=== PATIENT | male | born 1955 | race African-American/Black ===

== ENCOUNTER 2020-12-09 08:00 | Inpatient (IN) | payer OTHER ==
[2020-12-02 12:13] VITALS: BMI 24.0
[2020-12-09] MEDS ORDERED: PROMETHAZINE HCL 25 MG/1 ML VIAL IVPUSH PRN (16:11)
[2020-12-09] MEDS ORDERED: ONDANSETRON 4 MG/2 ML VIAL IVPUSH PRN ×2 (16:11→21:06)
[2020-12-09] MEDS ORDERED: TRANEXAMIC ACID 1000 MG/10 ML VIAL ONE (20:09)
[2020-12-09] MEDS ORDERED: ACETAMINOPHEN INJECTION 100 ML IVPB ONE (20:57)
[2020-12-09] MEDS ORDERED: PROMETHAZINE HCL 25 MG/1 ML VIAL ONE (21:00)
[2020-12-09] MEDS ORDERED: HYDROmorphone HCL 0.5 MG/0.5 ML SYRINGE ONE (21:00)
[2020-12-09] MEDS ORDERED: ALBUTEROL SO4 HFA INHALER IH PRN ×2 (21:06→21:12)
[2020-12-09] MEDS ORDERED: MAGNESIUM HYDROX 2400MG/30ML ORAL SUSPENSION 30 ML CUP PO PRN (21:06)
[2020-12-09] MEDS ORDERED: FLUTICASONE PROP 0.05% 16 GM NASAL SPRAY NS PRN (21:06)
[2020-12-09] MEDS ORDERED: MAG HYDROX/AL HYDROX/SIMETH 30 ML UNIT-DOSE CUP PO PRN (21:06)
[2020-12-09] MEDS ORDERED: LACTATED RINGERS SOLUTION 1,000 ML IV SCH (21:15)
[2020-12-09] MEDS: HYDROmorphone HCl 2 MG/ML VIAL IVPUSH PRN ×2 (21:17→21:29)
[2020-12-09] MEDS: LABETALOL HCL 5 MG/1 ML (100MG/20 ML VIAL) IVPUSH PRN ×2 (21:22→22:40)
[2020-12-09] MEDS: hydrALAZINE HCL 20 MG/ML VIAL IVPUSH ONE ×2 (21:40→21:55)
[2020-12-09] MEDS ORDERED: HYDROmorphone HCl 2 MG/ML VIAL IVPUSH PRN (21:42)
[2020-12-09] MEDS ORDERED: HYDROmorphone HCl 2 MG/ML VIAL IVPB PRN (21:45)
[2020-12-09] MEDS: ACETAMINOPHEN 1000 MG/100 ML VIAL (NON FORMULARY) IVPB ONE (22:00)
[2020-12-09] MEDS ORDERED: ASPIRIN 325 MG TABLET PO SCH (22:00)
[2020-12-10] MEDS: SENNOSIDES/DOCUSATE COMBO (SENNA PLUS) TABLET (UD) PO SCH ×3 (00:09→21:54)
[2020-12-10] MEDS: CEFAZOLIN 2 GM/D5W 2 GM/50 ML ML IVPB SCH ×3 (01:19→13:00)
[2020-12-10] MEDS: ACETAMINOPHEN 325 MG TABLET (FP) PO PRN ×2 (06:49→21:55)
[2020-12-10] MEDS: oxyCODONE HCL 5 MG TABLET PO PRN ×3 (06:49→21:55)
[2020-12-10] MEDS ORDERED: HYDROmorphone HCL/PF 1 MG/ML VIAL IVPB PRN (07:56)
[2020-12-10 08:03] LABS: HEMATOCRIT 37.3 % (35.4-49); HEMOGLOBIN 11.9 GM/dl (11.7-16.9); MCH 25.7 pg (25.7-33.7); MCHC 31.9 g/dl (32.0-35.9); MEAN CELL VOLUME 80.6 fl (80-96); MEAN PLT VOLUME 9.1 fl (7.5-11.1); PLATELET COUNT 221 K/MM3 (134-434); RBC 4.63 M/mm3 (4.00-5.60); RDW 14.7 % (11.9-15.9); WHITE BLOOD COUNT 8.4 K/mm3 (4.0-10.8)
[2020-12-10 08:05] LABS: CALCIUM 8.9 mg/dl (8.5-10); CREATININE 1.1 mg/dl (0.55-1.3); POTASSIUM 4.2 mmol/L (3.5-5.1)
[2020-12-10] MEDS: ACETAMINOPHEN 1000 MG/100 ML VIAL (NON FORMULARY) IVPB ONE (08:36)
[2020-12-10] MEDS: LACTATED RINGERS SOLUTION 1,000 ML IV SCH ×2 (08:36→18:04)
[2020-12-10] MEDS: hydrALAZINE HCL 20 MG/ML VIAL IVPUSH ONE (08:37)
[2020-12-10] MEDS: CELECOXIB 200 MG CAPSULE PO SCH (09:47)
[2020-12-10] MEDS: ASPIRIN 81 MG CHEWABLE TABLETS PO SCH ×2 (09:48→21:54)
[2020-12-10] MEDS: PANTOPRAZOLE 40 MG TABLET PO SCH (09:48)
[2020-12-10] MEDS: amLODIPine BESYLATE 10 MG TABLET (FP) PO SCH (09:48)
[2020-12-11] MEDS: ACETAMINOPHEN 325 MG TABLET (FP) PO PRN (06:21)
[2020-12-11] MEDS: oxyCODONE HCL 5 MG TABLET PO PRN (06:22)
[2020-12-11 06:33] VITALS: TEMP 98.3
[2020-12-11 08:22] LABS: HEMATOCRIT 33.9 % (35.4-49); MCH 26.3 pg (25.7-33.7); MCHC 32.4 g/dl (32.0-35.9); MEAN CELL VOLUME 81.4 fl (80-96); MEAN PLT VOLUME 8.8 fl (7.5-11.1); PLATELET COUNT 190 K/MM3 (134-434); RBC 4.17 M/mm3 (4.00-5.60); RDW 14.2 % (11.9-15.9)
[2020-12-11 08:50] VITALS: BP 131/79; PULSE 85
[2020-12-11] MEDS: CELECOXIB 200 MG CAPSULE PO SCH (09:28)
[2020-12-11] MEDS: SENNOSIDES/DOCUSATE COMBO (SENNA PLUS) TABLET (UD) PO SCH (09:28)
[2020-12-11] MEDS: ASPIRIN 81 MG CHEWABLE TABLETS PO SCH (09:28)
[2020-12-11] MEDS: amLODIPine BESYLATE 10 MG TABLET (FP) PO SCH (09:28)
[2020-12-11] MEDS: PANTOPRAZOLE 40 MG TABLET PO SCH (09:28)
== END 2020-12-11 12:40 | disposition home or self-care (01) | DRG 470 ==
LOC: FM/S 14:56
PROVIDERS: ADMIT Orthopaedic Surgery Orthopaedic Surgery of the Spine; ATTEND Orthopaedic Surgery Orthopaedic Surgery of the Spine
PROC: 0SR90JA Replacement of Right Hip Joint with Synthetic Substitute, Uncemented, Open Approach (ICD-10-PCS; principal; 2020-12-09 19:25)
DX: M16.11 Unilateral primary osteoarthritis, right hip (principal); I10 Essential (primary) hypertension; J45.909 Unspecified asthma, uncomplicated; I73.9 Peripheral vascular disease, unspecified; F32.9 Major depressive disorder, single episode, unspecified; F41.0 Panic disorder [episodic paroxysmal anxiety]
CPT/HCPCS: 36415; 73502-TC-RT-FY; 80048; 85027; 88305-TC; 88311-TC; 94760; 97010-GP; 97116-GP; 97163-GP; J0131